=== PATIENT | male | born 1970 | race Caucasian/White ===

== ENCOUNTER 2016-05-21 19:07 | Emergency (ER) | payer OTHER ==
--- NOTE | ~2016-05-21 | CR229 ---
[facility] A Service of [facility] RADIOLOGY TEXT RESULTS PATIENT: ОЛЕГ STOUT LOCATION: [place] : [birth year] UNIT #: [id number] AGE: [address]: Marielos Mendoza APRN SEX: M ORDER DR: [id number] [facility] [address] [place], [place] [address] [id number] E MR#: [id number] Acc #: [id number] NAME: ОЛЕГ STOUT : 1970 SEX: M STUDY DATE/TIME: 05/21/2016 19:01 UNIT: [facility] ROOM: STUDY DESCRIPTION: CR Shoulder Min 2 View Lt Attending Physician: Marielos Mendoza A.P.R.N. Ordering Physician: Ed Odell Osuna M.D. Primary Care Physician: Gaurang Jerez M.D. MEDICAL IMAGING REPORT This report is preliminary unless electronic signature is present EXAM Left shoulder, 4 views, 05/21/2016 HISTORY Left shoulder pain status post fall yesterday with left shoulder swelling. FINDINGS AP view with internal and external rotation of the shoulder girdle shows satisfactory relationship of the humeral head and glenoid fossa. The joint space is normal. There is no identifiable fracture or dislocation or bony destructive process about the shoulder girdle anatomy. The acromioclavicular joint is normal. There is no radiopaque foreign body in the region. IMPRESSION Normal shoulder. Dictated by... Clovis Ramírez M.D. THIS IS AN ELECTRONICALLY VERIFIED REPORT Clovis Ramírez M.D. at 05/22/2016 10:28 AM GERSON/abdirahman TD: 05/21/2016 23:05 JOB #: [id number] MEDICAL IMAGING REPORT Page 1 of 1 COPY
--- NOTE | ~2016-05-21 | CR93 ---
[facility] A Service of [facility] RADIOLOGY TEXT RESULTS PATIENT: ОЛЕГ STOUT LOCATION: [facility] : [birth year] UNIT #: [id number] AGE: [address]: Marielos Mendoza APRN SEX: M ORDER DR: [id number] [facility] [address] [place], [place] [address] [id number] E MR#: [id number] Acc #: [id number] NAME: ОЛЕГ STOUT : 1970 SEX: M STUDY DATE/TIME: 05/21/2016 UNIT: [facility] ROOM: STUDY DESCRIPTION: CR Elbow Min 3 Views Lt Attending Physician: Marielos Mendoza A.P.R.N. Ordering Physician: Ed Odell Osuna M.D. Primary Care Physician: Gaurang Jerez M.D. MEDICAL IMAGING REPORT This report is preliminary unless electronic signature is present EXAM Left elbow 3 views, 05/21/2016 1856 hours. CLINCIAL HISTORY Patient fell yesterday complaining of posterior shoulder pain radiating to posterior elbow. COMPARISON None. FINDINGS AP, lateral and oblique views demonstrate no elbow joint effusion or fracture. No dislocation. There is trace subcutaneous edema posteriorly. IMPRESSION Trace posterior subcutaneous edema. There is no elbow joint effusion or fracture. No degenerative change. Dictated by... Tenisha Ulrich M.D. THIS IS AN ELECTRONICALLY VERIFIED REPORT Tenisha Ulrich M.D. at 05/22/2016 9:29 AM Yolanda TD: 05/21/2016 23:31 JOB #: [id number] MEDICAL IMAGING REPORT Page 1 of 1 COPY
[~2016-05-21 19:07] MED LIST: BACTRIM DS TABL1 TA1 PO; CLEOCIN HCL300 M1 PO; HYDROCODONE PO; LORTAB 10-5001 EACH PO
[2016-05-21 19:39] LABS: BASOPHIL# 0.1 X10e3 (0-0.3); BASOPHIL% 0.7 % (0-2.5); EOSINOPHIL# 0.1 X10e3 (0-0.7); EOSINOPHIL% 1.4 % (0.0-7.0); HEMATOCRIT 43.4 % (38.0-50.0); HEMOGLOBIN 14.4 gm/dL (13.0-16.0); LYMPHOCYTE# 2.5 X10e3 (1.0-3.5); LYMPHOCYTE% 26.8 % (17.0-45.0); MEAN CORPUSCULAR HEMOGLOBIN 29.9 PG (28-34); MEAN CORPUSCULAR HGB CONC 33.3 g/dL (30-36); MEAN PLATELET VOLUME 10.1 FL (6.5-11.5); MONOCYTE# 1.3 X10e3 (0-1.0); MONOCYTE% 13.7 % (3.0-12.0); NEUTROPHIL# 5.4 X10e3 (1.5-7.1); NEUTROPHIL% 57.4 % (40-75); PLATELET COUNT 145 X10e3 (140-420); RED BLOOD COUNT 4.83 X10e (3.90-5.60); RED CELL DISTRIBUTION WIDTH 14.5 % (11.0-15.5); WHITE BLOOD COUNT 9.4 X10e3 (4.0-10.5)
[2016-05-21 19:40] LABS: DIFF IND NO
[2016-05-21 20:05] LABS: BUN/CREATININE RATIO 16.66; CALCIUM SERUM 8.8 mg/dL (8.4-10.2); CREATININE SERUM 0.9 mg/dL (0.6-1.4); GLOM FILT RATE Estimated 102.1 mL/min (>60)
== END 2016-05-21 21:00 | disposition other institution (70) ==
LOC: CED 19:07
PROVIDERS: Nurse Practitioner
DX: S40.012A Contusion of left shoulder, initial encounter (principal); S50.02XA Contusion of left elbow, initial encounter; L02.512 Cutaneous abscess of left hand; L03.114 Cellulitis of left upper limb; F17.200 Nicotine dependence, unspecified, uncomplicated; X58.XXXA Exposure to other specified factors, initial encounter
CPT/HCPCS: 36415; 73030; 73080; 80048; 85025; 87040; 87070; 87077; 87186; 87205; 90471; 90715; 96365; 96375; 99284; J2270; J2405

== ENCOUNTER 2016-07-22 11:19 | Emergency (ER) | payer OTHER ==
[2016-07-22] MEDS ORDERED: NO MEDICATIONS (11:24)
== END 2016-07-22 13:15 | disposition home or self-care (01) ==
LOC: SED 11:19
DX: T40.601A Poisoning by unspecified narcotics, accidental (unintentional), initial encounter (principal); Y92.9 Unspecified place or not applicable
CPT/HCPCS: 99284